=== PATIENT | female | born 1970 | race Caucasian/White ===

== ENCOUNTER 2021-01-08 16:08 | Emergency (ER) | payer SELFPAY ==
--- OUTSIDE RECORDS SUMMARY | 2021-01-08 16:11 | XMS REPORT | Continuity of Care Document ---
:1970 Author Organization [facility] t Address [address] [place] [address] Care Team Providers Name Role Phone Unavailable Unavailable Unavailable Problems This patient has no known problems. Allergies, Adverse Reactions, Alerts This patient has no known allergies or adverse reactions. Medications This patient has no known medications. Procedures This patient has no known procedures. Encounters Start End Encounter Admission Attending Care Care Encounter Source Date/Time Date/Time Type Type Clinicians Facility Department ID 2020-12-21 2020-12-21 Outpatient [facility] CARL[facility]LE [id number] [facility] 2020-12-11 2020-12-11 Outpatient CAR[facility] CARLISLE [id number] [facility] 2020-11-30 2020-11-30 Outpatient CARL[facility]LE CARLISLE [id number] [facility]:00[facility]00 00:[facility] 2020-11-30 2020-11-30 Outpatient CARL[facility]LE CARLISLE [id number] [facility] 00:00:00 00:00:[facility] 2020-11-09 2020-11-09 Outpatient CARLISLE CARLISLE [id number] [facility] 00:00:00 00:00:[facility] 2020-11-07 2020-11-07 Outpatient CARLISLE CARLISLE [id number] [facility]:00[facility]00 00:00:[facility] 2020-11-05 2020-11-05 Outpatient CARLISLE CARLISLE [id number] [facility] 00[facility]00:00 00:00:[facility] Results This patient has no known results.
[2021-01-08] MEDS ORDERED: MORPHINE 4 MG/ML SYR ONE ×2 (17:15→20:25)
[2021-01-08] MEDS ORDERED: KETOROLAC 30 MG/ML INJ ONE (17:16)
[2021-01-08] MEDS ORDERED: ONDANSETRON 4 MG/2 ML VIAL ONE (17:16)
[2021-01-08] MEDS ORDERED: DIAZEPAM 10 MG/2 ML INJ SYRINGE ONE (17:16)
--- NOTE | 2021-01-08 20:06 | RAD REPORT ---
EXAM DESCRIPTION: MRI - Lumbar Spine Wo Con - 01/08/2021 7:44 pm CLINICAL HISTORY: Right leg radiculopathy and back pain COMPARISON: None. TECHNIQUE: Sagittal T1, T2 and STIR weighted sequences were obtained. Axial T1 and T2 sequences were obtained through the lumbar disc levels. FINDINGS: 16 x 6 millimeter) CC by AP) left paracentral disc herniation T11-12 compression upon the thecal sac is noted. The disc extends superiorly as well as inferiorly. T12-L1 unremarkable 12 x 5 x 9 (cc by AP by trans) millimeter left paracentral disc herniation L1-2. Compression upon the rachel sac is present Annular fissure with small disc bulge L2-3. 15 x 5 x 10 (cc by AP by trans) millimeter right paracentral disc herniation L3-4. The disc extends inferiorly. In addition there is a small left posterolateral disc herniation Mild spondylosis L4-5 Broad-based disc herniation L5-S1 abuts the S1 nerve roots but does not displace them. Thecal sac is normal caliber. Neural foramina are patent. No significant abnormal signal within the bones IMPRESSION: Moderate to large left paracentral disc herniation T11-12 Moderate left paracentral disc herniation L1-2 Moderate to large right paracentral disc herniation L3-4. In addition there is a small left posterola teral disc herniation which narrows the left lateral recess
--- NOTE | 2021-01-08 20:45 | ER ---
Nurse's Notes [facility] Name: Emi Jurado Age: 50 yrs Sex: Female : 1970 Arrival Date: 01/08/2021 Time: 16:14 Bed 16 Private MD: Diagnosis: Sciatica, right side Presentation: 01/08 16:26 Chief complaint: Patient states: Back pain real bad for 1 week, worse than usual. Pain ll1 radiates down R leg. States she is scheduled for neuro appt. 01/14/21. Has MRI with her. Coronavirus screen: Client denies travel out of the [place] in the last 14 days. At this time, the client does not indicate any symptoms associated with coronavirus-19. Ebola Screen: Patient denies travel to an Ebola-affected area in the 21 days before illness onset. Initial Sepsis Screen: Does the patient meet any 2 criteria? No. Patient's initial sepsis screen is negative. Does the patient have a suspected source of infection? Yes: Bone or joint infection. Risk Assessment: Do you want to hurt yourself or someone else? Patient reports no desire to harm self or others. Onset of symptoms was January 01, 2021. 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 Flu vaccine is not up to date. - Social history:: Smoking status: Patient reports cigarette usage, denies chronic smoking, but will smoke occasionally, Smoking status: Patient reports the use of cigarette tobacco products, denies chronic smoking, but will smoke occasionally. Screenin:17 Abuse screen: Denies threats or abuse. Denies injuries from another. Nutritional jl7 screening: No deficits noted. Tuberculosis screening: No symptoms or risk factors identified. Fall Risk IV access (20 points). Total Hagan Fall Scale indicates No Risk (0-24 pts). Assessment: 17:00 General: Appears in no apparent distress. uncomfortable, Behavior is cooperative, jl7 anxious, crying. Pain: Complains of pain in low back area Pain radiates to right leg Pain currently is 10 out of 10 on a pain scale. Quality of pain is described as sharp, shooting, tingling, Is continuous. Neuro: Level of Consciousness is awake, alert, obeys commands, Oriented to person, place, time, situation. Cardiovascular: Patient's skin is warm and dry. Respiratory: Airway is patent Respiratory effort is even, unlabored, Respiratory pattern is regular, symmetrical. Derm: Skin is pink, warm \T\ dry. Musculoskeletal: Range of motion: limited in left hip. 18:00 Reassessment: Patient appears in no apparent distress at this time. Patient and/or jl7 family updated on plan of care and expected duration. Pain level reassessed. Patient is alert, oriented x 3, equal unlabored respirations, skin warm/dry/pink. Patient states feeling better. Patient states symptoms have improved. 18:53 Reassessment: Patient appears in no apparent distress at this time. Patient and/or jl7 family updated on plan of care and expected duration. Pain level reassessed. Patient is alert, oriented x 3, equal unlabored respirations, skin warm/dry/pink. Patient states feeling better. Patient states symptoms have improved. 19:20 Reassessment: patient in MRI. rr5 20:15 Reassessment: Patient appears in no apparent distress at this time. back from MRI rr5 complaining of right leg pain pain score 10/10. 20:35 Reassessment: reassess by ED provider, patient complaint still in pain with order made rr5 and carried out. 21:05 Reassessment: Patient appears in no apparent distress at this time. Patient and/or rr5 family updated on plan of care and expected duration. Pain level reassessed. Patient is alert, oriented x 3, equal unlabored respirations, skin warm/dry/pink. discharge instruction given and explained without complaints made. Vital Signs: 16:26 BP 179 / 89; Pulse 76; Resp 18; Temp 98.2; Pulse Ox 100% ; Weight 122.47 kg; Height 5 ll1 ft. 2 in. (157.48 cm); Pain 10/10; 17:17 BP 134 / 57; Pulse 57; Resp 19; Pulse Ox 95% ; jl7 18:53 BP 107 / 65; Pulse 53; Resp 17; Pulse Ox 100% ; Pain 0/10; jl7 20:14 BP 155 / 65; Pulse 61; Resp 19; Pulse Ox 100% ; Pain 10/10; rr5 21:05 BP 132 / 70; Pulse 65; Resp 19; Pulse Ox 98% ; rr5 16:26 Body Mass Index 49.38 (122.47 kg, 157.48 cm) 1 ED Course: 16:14 Patient arrived in ED. ds1 16:25 Bernard Tidwell PA is PHCP. jmm 16:25 Erikc Mcallister MD is Attending Physician. jmm 16:30 Triage completed. ll1 16:32 Arm band placed on Patient placed in an exam room, on a stretcher. ll1 16:55 Briana Dean RN is Primary Nurse. jl7 17:08 Inserted saline lock: 20 gauge in left antecubital area, using aseptic technique. jl7 17:17 Patient has correct armband on for positive identification. Bed in low position. Call jl7 light in reach. Side rails up X2. Pulse ox on. NIBP on. 19:43 Lumbar Spine Wo Con In Process Unspecified. EDMS 21:05 No provider procedures requiring assistance completed. IV discontinued, intact, rr5 bleeding controlled, No redness/swelling at site. Pressure dressing applied. Administered Medications: 17:05 Drug: morphine 4 mg Route: IVP; Site: left antecubital; jl7 17:45 Follow up: Response: No adverse reaction; Pain is decreased jl7 17:05 Drug: Zofran (Ondansetron) 4 mg Route: IVP; Site: left antecubital; jl7 17:45 Follow up: Response: No adverse reaction jl7 17:07 Drug: Valium (diazepam) 5 mg Route: IVP; Site: left antecubital; jl7 17:45 Follow up: Response: No adverse reaction; Pain is decreased jl7 17:10 Drug: Ketorolac 30 mg Route: IVP; Site: left antecubital; jl7 17:45 Follow up: Response: No adverse reaction; Pain is decreased jl7 20:14 Drug: morphine 4 mg {Note: rass 0.} Route: IVP; Site: left antecubital; rr5 20:40 Follow up: Response: No adverse reaction; Pain is unchanged, physician notified; RASS: rr5 Alert and Calm (0) 20:45 Drug: fentaNYL (PF) 50 mcg {Note: rass0 .} Route: IVP; Site: left antecubital; rr5 21:05 Follow up: Response: No adverse reaction; Pain is decreased; RASS: Alert and Calm (0) rr5 Outcome: 20:45 Discharge ordered by . vinnie 21:05 Discharged to home via wheelchair, with family. rr5 21:05 Condition: stable 21:05 Discharge instructions given to patient, Instructed on discharge instructions, follow up and referral plans. medication usage, Demonstrated understanding of instructions, follow-up care, medications, Prescriptions given X 2. 21:07 Patient left the ED. rr5 Signatures: Dispatcher [employer] EDMS Bernard Tidwell PA PA jmm Sanford, Demi ds1 Briana Dean RN RN jl7 Manuel Schroeder RN RN rr5 Andrew Nathan RN RN ll1
--- NOTE | 2021-01-08 20:45 | EDPHYS ---
Physician Documentation [facility] Name: Emi Jurado Age: 50 yrs Sex: Female : 1970 Arrival Date: 01/08/2021 Time: 16:14 Bed 16 Private MD: ED Physician Erick Mcallister HPI: 01/08 16:37 This 50 yrs old Female presents to ER via Ambulatory with complaints of Back jmm Pain. 16:37 The patient presents with pain that is acute, that is chronic. Onset: The jmm symptoms/episode began/occurred gradually, 1 week(s) ago. The pain radiates to the right leg. Associated signs and symptoms: Pertinent positives: numbness. This is a 50 year old female with a history of chronic back pain, DM, that presents to the ED with complaints of radicular pain down the right leg. Patient states it is different in character to previous episodes. Patient states she is scheduled to see a client specialist in 6 days. Patient states she could not wait to see the specialist due to pain. Patient denies bowel or bladder dysfunction. 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 Flu vaccine is not up to date. - Social history:: Smoking status: Patient reports cigarette usage, denies chronic smoking, but will smoke occasionally, Smoking status: Patient reports the use of cigarette tobacco products, denies chronic smoking, but will smoke occasionally. ROS: 16:37 Constitutional: Negative for fever, chills, and weight loss, Cardiovascular: Negative jmm for chest pain, palpitations, and edema, Respiratory: Negative for shortness of breath, cough, wheezing, and pleuritic chest pain. 16:37 Back: Positive for pain with movement. 16:37 MS/extremity: Positive for radiated pain. 16:37 All other systems are negative. Exam: 16:37 Head/Face: atraumatic. jmm 16:37 Eyes: EOMI, no conjunctival erythema appreciated ENT: Moist Mucus Membranes Neck: Trachea midline, Supple Chest/axilla: Normal chest wall appearance and motion. Cardiovascular: Regular rate and rhythm. No edema appreciated Respiratory: Normal respirations, no respiratory distress appreciated Abdomen/GI: Non distended, soft Back: Normal ROM Skin: General appearance color normal MS/ Extremity: Moves all extremities, no obvious deformities appreciated, no edema noted to the lower extremities Neuro: Awake and alert, normal gait Psych: Behavior is normal, Mood is normal, Patient is cooperative and pleasant 16:37 Constitutional: The patient appears alert, awake, anxious, uncomfortable. 18:14 Neuro: extensor hallucis longus intact bilaterally. [facility] Vital Signs: 16:26 BP 179 / 89; Pulse 76; Resp 18; Temp 98.2; Pulse Ox 100% ; Weight 122.47 kg; Height 5 ll1 ft. 2 in. (157.48 cm); Pain 10/10; 17:17 BP 134 / 57; Pulse 57; Resp 19; Pulse Ox 95% ; jl7 18:53 BP 107 / 65; Pulse 53; Resp 17; Pulse Ox 100% ; Pain 0/10; jl7 20:14 BP 155 / 65; Pulse 61; Resp 19; Pulse Ox 100% ; Pain 10/10; rr5 21:05 BP 132 / 70; Pulse 65; Resp 19; Pulse Ox 98% ; rr5 16:26 Body Mass Index 49.38 (122.47 kg, 157.48 cm) ll1 MDM: 16:37 Patient medically screened. [facility] 20:43 Data reviewed: vital signs, nurses notes. Counseling: I had a detailed discussion with [facility] the patient and/or guardian regarding: the historical points, exam findings, and any diagnostic results supporting the discharge/admit diagnosis, lab results, radiology results, the need for outpatient follow up, to return to the emergency department if symptoms worsen or persist or if there are any questions or concerns that arise at home. ED course: Pain has decreased in the ED. MRI reveals no cord compression/cauda equina/Abscess. Patient advised to follow up with neuro surgery and otherwise given strict return precautions. patient understood and agrees with the plan of care. . 01/08 16:49 Order name: Lumbar Spine Wo Con; Complete Time: 20:19 EDMS 01/08 16:38 Order name: Saline Lock; Complete Time: 17:14 vinnie Administered Medications: 17:05 Drug: morphine 4 mg Route: IVP; Site: left antecubital; jl7 17:45 Follow up: Response: No adverse reaction; Pain is decreased jl7 17:05 Drug: Zofran (Ondansetron) 4 mg Route: IVP; Site: left antecubital; jl7 17:45 Follow up: Response: No adverse reaction jl7 17:07 Drug: Valium (diazepam) 5 mg Route: IVP; Site: left antecubital; jl7 17:45 Follow up: Response: No adverse reaction; Pain is decreased jl7 17:10 Drug: Ketorolac 30 mg Route: IVP; Site: left antecubital; jl7 17:45 Follow up: Response: No adverse reaction; Pain is decreased jl7 20:14 Drug: morphine 4 mg {Note: rass 0.} Route: IVP; Site: left antecubital; rr5 20:40 Follow up: Response: No adverse reaction; Pain is unchanged, physician notified; RASS: rr5 Alert and Calm (0) 20:45 Drug: fentaNYL (PF) 50 mcg {Note: rass0 .} Route: IVP; Site: left antecubital; rr5 21:05 Follow up: Response: No adverse reaction; Pain is decreased; RASS: Alert and Calm (0) rr5 Disposition: 01/08/21 20:45 Discharged to Home. Impression: Sciatica, right side. - Condition is Stable. - Discharge Instructions: Sciatica. - Prescriptions for Tylenol- Codeine #3 300-30 mg Oral Tablet - take 1 tablet by ORAL route every 4-6 hours As needed; 20 tablet. Valium 5 mg Oral Tablet - take 1 tablet by ORAL route every 8 hours As needed; 20 tablet. - Medication Reconciliation Form, Thank You Letter, Antibiotic Education, Prescription Opioid Use, Work release form form. - Follow up: Private Physician; When: 2 - 3 days; Reason: Recheck today's complaints, Continuance of care, Re-evaluation by your physician. Addendum: 01/11/2021 15:41 Co-signature as Attending Physician, Erick jacobs Signatures: Dispatcher [employer] EDBernard Arteaga PA PA jmm Leal, Jahala RN RN jl7 Erick Mcallister MD MD ma2 Manuel Schroeder RN RN rr5 Andrew Nathan RN RN ll1 Corrections: (The following items were deleted from the chart) 01/08 18:14 16:37 This is a 50 year old female with a history of chronic back pain, DM, that vinnie presents to the ED with complaints of radicular pain down the right leg. Patient states it is different in character to previous episodes. Patient states she is scheduled to see a client specialist in 6 days. Patient states she could not wait to see the specialist due to pain. . [facility] 19:46 16:49 Lumbar Spine Wo Con+MRI.RAD.BRZ ordered. EDMS EDMS 21:07 20:45 01/08/2021 20:45 Discharged to Home. Impression: Sciatica, right side. Condition rr5 is Stable. Forms are Medication Reconciliation Form, Thank You Letter, Antibiotic Education, Prescription Opioid Use. Follow up: Private Physician; When: 2 - 3 days; Reason: Recheck today's complaints, Continuance of care, Re-evaluation by your physician. [facility]
[2021-01-08] MEDS ORDERED: FENTANYL CITR 100 MCG/2 ML ONE (20:52)
[2021-01-08 21:24] VITALS: TEMP 98.2
[2021-01-08 21:26] VITALS: O2SAT 100
[2021-01-08 21:27] VITALS: BP 155/65
== END 2021-01-08 21:07 | disposition home or self-care (01) ==
LOC: ER 16:08
DX: M54.31 Sciatica, right side (principal); I10 Essential (primary) hypertension; F17.210 Nicotine dependence, cigarettes, uncomplicated; Z88.2 Allergy status to sulfonamides; Z88.7 Allergy status to serum and vaccine
CPT/HCPCS: 72148; 96374; 96375; 99284; J2405; J3010; J3360